=== PATIENT | female | born 1990 | race Caucasian/White ===

== ENCOUNTER 2022-07-17 10:56 | Outpatient (CLI) | payer OTHER, SELFPAY | END 2022-07-17 10:57 | disposition home or self-care (01) | LOC: FRMREF 10:57 | PROVIDERS: PCP Registered Nurse; Visit Provider Registered Nurse | DX: Z34.91 Encounter for supervision of normal pregnancy, unspecified, first trimester (principal) | CPT/HCPCS: 84702 ==

== ENCOUNTER 2022-07-19 11:42 | Outpatient (CLI) | payer OTHER, SELFPAY | END 2022-07-19 11:43 | disposition home or self-care (01) | PROVIDERS: PCP Registered Nurse; Visit Provider Registered Nurse | DX: Z34.90 Encounter for supervision of normal pregnancy, unspecified, unspecified trimester (principal) | CPT/HCPCS: 84702 ==

== ENCOUNTER 2022-07-25 13:50 | Outpatient (CLI) | payer OTHER, SELFPAY ==
--- NOTE | 2022-07-25 14:00 | CRLHL7_ITS ---
For Patients: As a result of the Century Cures Act, medical imaging exams and procedure reports are released immediately into your electronic medical record. You may view this report before your referring provider. If you have questions, please contact your health care provider. INDICATION: First trimester scan, establish dates. COMPARISON: None. TECHNIQUE: Real-time jaime-scale imaging of the pelvis was performed. FINDINGS: Sonographic imaging demonstrates a single living intrauterine gestation. The embryo demonstrates a regular cardiac rate measuring 150 beats per minute. The embryo`s crown-rump length measurement of 1.2 cm corresponds to a gestational age of 7 weeks 3 days with a sonographic due date of 03/10/2023. There is a normal-appearing yolk sac. There are no gross abnormalities noted within the embryo at this early state of development. The gestational sac has a normal appearance. There is no evidence of a perigestational hemorrhage. The amount of fluid within the sac appears appropriate for gestational age. The cervix is closed. The myometrium appears normal. The ovaries are of normal size. Hemorrhagic right ovarian cyst measuring 2.3 cm. Corpus luteal cyst left ovary measuring 2.3 cm. There are no suspicious fluid collections noted in the cul-de-sac. IMPRESSION: Single living intrauterine with sonographic gestational age 7 weeks 3 days and sonographic due date 03/10/2023. Dictated by Jj Monge MD @ 07/27/2022 12:26:17 PM (Electronically Signed)
== END 2022-07-25 13:51 | disposition home or self-care (01) ==
LOC: US 13:52
PROVIDERS: PCP Registered Nurse; Visit Provider Registered Nurse
DX: Z34.91 Encounter for supervision of normal pregnancy, unspecified, first trimester (principal); Z3A.01 Less than 8 weeks gestation of pregnancy
CPT/HCPCS: 76817

== ENCOUNTER 2022-07-25 15:20 | Outpatient (CLI) | payer OTHER, SELFPAY ==
[2022-07-25 22:08] LABS: Chlamydia DNA Amplified* NOT DETECTED (No Detected); GC DNA Amplified* NOT DETECTED (No Detected)
== END 2022-07-25 15:21 | disposition home or self-care (01) ==
PROVIDERS: PCP Registered Nurse; Visit Provider Registered Nurse
DX: Z34.91 Encounter for supervision of normal pregnancy, unspecified, first trimester (principal); Z3A.01 Less than 8 weeks gestation of pregnancy
CPT/HCPCS: 0353U; 86592; 86703; 86762; 86787; 86803; 86850; 86900; 86901; 87086; 87340; 87491; 87591

== ENCOUNTER 2022-11-21 10:34 | Outpatient (CLI) | payer OTHER, SELFPAY | END 2022-11-21 10:35 | disposition home or self-care (01) | PROVIDERS: Visit Provider Obstetrics & Gynecology | DX: O10.912 Unspecified pre-existing hypertension complicating pregnancy, second trimester (principal); Z3A.24 24 weeks gestation of pregnancy | CPT/HCPCS: 82565; 82570; 84156; 84450; 84460; 84520 ==

== ENCOUNTER 2022-12-04 08:59 | Outpatient (CLI) | payer OTHER, SELFPAY ==
--- NOTE | 2022-12-04 09:15 | CRLHL7_ITS ---
For Patients: As a result of the Century Cures Act, medical imaging exams and procedure reports are released immediately into your electronic medical record. You may view this report before your referring provider. If you have questions, please contact your health care provider. OB ULTRASOUND 12/04/2022 INDICATION: Follow-up growth due to high BMI. FINDINGS: Cervix: Not visualized. Positioning: Jose Miguel Breech. Amniotic Fluid: 4.9 cm, SDP Placenta: Posterior, TA. Heart Rate: 139 bpm. Biometry: BPD: 6.6 cm. 26w, 5d, 54 percent. HC: 25.0 cm. 27w, 1d, 55 percent. AC: 22.0 cm. 26w, 3d, 46 percent. FL: 4.7 cm. 25w, 4d, 17 percent. FL/AC ratio: 21 percent. HC/AC ratio: 1.1. EFW: 907 g. Weight: 2 lbs, 10 oz. age by this US: 26w, 3d. ADDIS by this US: 03/09/2023. Percentile by ADDIS: 35%. IMPRESSION: 1. Single live intrauterine gestation. Composite gestational age 26 weeks 3 days. ADDIS of 03/09/2023. 2. Estimated weight is 907 grams which lies at the 35th percentile. Mago Vick M.D. Diagnostic/Breast Radiologist [email or web address] JOSE ALBERTO/emilee / DW/Dictated by: Mago Vick MD @ 12/06/2022 10:27:00 AM (Electronically Signed)
== END 2022-12-04 09:00 | disposition home or self-care (01) ==
LOC: US 08:59
PROVIDERS: Visit Provider Obstetrics & Gynecology
DX: Z34.92 Encounter for supervision of normal pregnancy, unspecified, second trimester (principal); Z3A.26 26 weeks gestation of pregnancy
CPT/HCPCS: 76816

== ENCOUNTER 2022-12-18 14:29 | Outpatient (CLI) | payer OTHER, SELFPAY | END 2022-12-18 14:30 | disposition home or self-care (01) | LOC: NFLDREF 12-22 05:48 | PROVIDERS: Visit Provider Obstetrics & Gynecology | DX: Z34.93 Encounter for supervision of normal pregnancy, unspecified, third trimester (principal); Z3A.28 28 weeks gestation of pregnancy | CPT/HCPCS: 86592 ==

== ENCOUNTER 2022-12-30 15:25 | Outpatient (CLI) | payer OTHER, SELFPAY ==
[2022-12-30 15:33] VITALS: PULSE 85; O2SAT 99
[2022-12-30 16:03] VITALS: RESP 18; TEMP 37.1
[2022-12-30 16:04] VITALS: BP 114/73; PULSE 80
--- NOTE | 2022-12-30 17:35 | PC.OBNST ---
NST Note NST Note Start: 12/30/22 15:57 Freq: ONCE Status: Active Protocol: Document 12/30/22 17:34 WK (Rec: 12/30/22 17:35 WK [id number]) NST Note 2 Para (# of births) 0 EDC 03/10/23 Gestational Age In Weeks & Days 30 Weeks & 0 Days High Risk Factors High Blood Pressure - Preexisting Patient Presented with Complaint(s) of Decreased movement Reactive Yes Appropriate for Gestational Age Yes RN Omayra RNC Date 12/30/22 Reactive Yes Appropriate for Gestational Age Yes NOY Reyes RNC Date 12/30/22 OB NST charge Yes Complete NST Note via Write Note Yes The provider's electronic signature indicates the NST is reactive/appropriate for gestational age. *Note to provider: If an addendum is required, open the patient's chart and click on the note under the Nurse/Allied Health tab.
== END 2022-12-30 16:50 | disposition home or self-care (01) ==
LOC: OB OUT 15:26 → OB 15:27
PROVIDERS: Visit Provider Obstetrics & Gynecology
DX: O10.913 Unspecified pre-existing hypertension complicating pregnancy, third trimester (principal); Z3A.30 30 weeks gestation of pregnancy
CPT/HCPCS: 59025; 99213

== ENCOUNTER 2022-12-31 15:34 | Outpatient (CLI) | payer OTHER, SELFPAY ==
--- NOTE | 2022-12-31 16:00 | CRLHL7_ITS ---
For Patients: As a result of the Century Cures Act, medical imaging exams and procedure reports are released immediately into your electronic medical record. You may view this report before your referring provider. If you have questions, please contact your health care provider. INDICATION: Pre-existing hypertension. Obesity. TECHNIQUE: Ultrasound OB pelvis transabdominal. Real-time jaime-scale imaging of the fetus was performed without stress testing. COMPARISON: None. FINDINGS: Biometric measurements: Biparietal diameter: 11th percentile. Head circumference: 10th percentile. Abdominal circumference: 4th percentile. Femur length: 11th percentile. Estimated weight: 1268 grams, 5th percentile. Estimated ultrasound age by today`s measurements is 29 weeks 0 days with an estimated date of delivery March 18, 2023. heart rate: 133 BPM. Presentation: Breech. Placenta: Posterior. Umbilical artery: Normal blood flow with a systolic to diastolic ratio of 3.3. Amniotic fluid volume single deepest pocket 3 cm 2/2. motion 2/2. tone 2/2. breathing movements 2/2. IMPRESSION: Single viable intrauterine with a biophysical profile 11/18. Fetus is measuring at the 5th percentile by estimated weight. No focal abnormality evident. Dictated by Luis Alberto Membreno MD @ 12/31/2022 6:09:34 PM (Electronically Signed)
== END 2022-12-31 15:35 | disposition home or self-care (01) ==
LOC: US 15:34
PROVIDERS: Visit Provider Obstetrics & Gynecology
DX: O10.913 Unspecified pre-existing hypertension complicating pregnancy, third trimester (principal); Z3A.29 29 weeks gestation of pregnancy
CPT/HCPCS: 76816; 76819; 76820

== ENCOUNTER 2023-01-05 14:00 | Outpatient (CLI) | payer OTHER, SELFPAY ==
--- NOTE | 2023-01-05 14:00 | CRLHL7_ITS ---
For Patients: As a result of the Century Cures Act, medical imaging exams and procedure reports are released immediately into your electronic medical record. You may view this report before your referring provider. If you have questions, please contact your health care provider. INDICATION: IUGR, HYPERTENSION COMPARISON: 12/31/2022 TECHNIQUE: Real time jaime scale imaging of the fetus was performed as well as color Doppler and spectral Doppler analysis of the umbilical artery. Without non-stress testing. FINDINGS: Sonographic imaging demonstrates a single living intrauterine gestation. Fetus demonstrates a regular cardiac rate of 154 beats per minute. Fetus has a ernesto breech position. The umbilical artery demonstrates adequate diastolic blood flow. The S/D ratio measures 4.0. The amniotic fluid volume appears normal and there is a single deepest pocket measurement of 4.2 cm. The fetus was active and demonstrated normal breathing movements. There was normal flexion and extension of the trunk and extremities. IMPRESSION: Normal biophysical profile score of 8 out of 8. Umbilical artery end-diastolic velocity lower limits of normal resulting in S/D ratio at the edge of normal. Continued follow-up recommended. Dictated by Jj Monge MD @ 01/05/2023 3:30:17 PM (Electronically Signed)
== END 2023-01-05 14:01 | disposition home or self-care (01) ==
LOC: US 14:01
PROVIDERS: Visit Provider Obstetrics & Gynecology
DX: O36.5990 Maternal care for other known or suspected poor fetal growth, unspecified trimester, not applicable or unspecified (principal); O13.9 Gestational [pregnancy-induced] hypertension without significant proteinuria, unspecified trimester
CPT/HCPCS: 76819; 76820

== ENCOUNTER 2023-01-09 15:51 | Outpatient (CLI) | payer OTHER, SELFPAY ==
--- NOTE | 2023-01-09 16:00 | CRLHL7_ITS ---
For Patients: As a result of the Century Cures Act, medical imaging exams and procedure reports are released immediately into your electronic medical record. You may view this report before your referring provider. If you have questions, please contact your health care provider. INDICATION: Obesity, IUGR. TECHNIQUE: Ultrasound OB pelvis transabdominal. Real-time jaime-scale imaging of the fetus was performed without stress testing. COMPARISON: 01/05/2023. FINDINGS: Intrauterine gestation: Present. heart rate: 126 BPM. Presentation: Breech. Placenta: Posterior fundal. Amniotic fluid volume single deepest pocket 2.2 cm, amniotic fluid index 6.7 2/2. motion 2/2. tone 2/2. breathing movements 2/2. IMPRESSION: Single viable intrauterine with a biophysical profile 8/8. The single deepest pocket is greater than 2 cm, however the amniotic fluid index is low, 6.7. Dictated by Stephanie Duval MD @ 01/09/2023 5:18:35 PM (Electronically Signed)
== END 2023-01-09 15:52 | disposition home or self-care (01) ==
LOC: US 15:52
PROVIDERS: Visit Provider Obstetrics & Gynecology
DX: O99.210 Obesity complicating pregnancy, unspecified trimester (principal); O36.5990 Maternal care for other known or suspected poor fetal growth, unspecified trimester, not applicable or unspecified; Z3A.00 Weeks of gestation of pregnancy not specified
CPT/HCPCS: 76819

== ENCOUNTER 2023-01-12 13:53 | Outpatient (CLI) | payer OTHER, SELFPAY ==
--- NOTE | 2023-01-12 14:00 | CRLHL7_ITS ---
For Patients: As a result of the Century Cures Act, medical imaging exams and procedure reports are released immediately into your electronic medical record. You may view this report before your referring provider. If you have questions, please contact your health care provider. INDICATION: d/t IUGR, high BMI, low GERA COMPARISON: 01/09/2023 TECHNIQUE: Real time jaime scale imaging of the fetus was performed. Without non-stress testing. FINDINGS: Sonographic imaging demonstrates a single living intrauterine gestation. Fetus demonstrates a regular cardiac rate of 141 beats per minute. Fetus has a ernesto breech position. The amniotic fluid volume appears decreased and there is a single deepest pocket measurement of 2.3 cm. GERA 7.5 cm. The fetus was active and demonstrated normal breathing movements. There was normal flexion and extension of the trunk and extremities. IMPRESSION: Normal biophysical profile score of 8 out of 8. Oligohydramnios with GERA 7.5 cm. Dictated by Jj Monge MD @ 01/13/2023 10:33:39 AM (Electronically Signed)
== END 2023-01-12 13:54 | disposition home or self-care (01) ==
LOC: US 13:54
PROVIDERS: Visit Provider Obstetrics & Gynecology
DX: O36.5990 Maternal care for other known or suspected poor fetal growth, unspecified trimester, not applicable or unspecified (principal)
CPT/HCPCS: 76819; 82565; 84450; 84460; 84520

== ENCOUNTER 2023-01-12 15:18 | Outpatient (CLI) | payer OTHER, SELFPAY | END 2023-01-12 15:19 | disposition home or self-care (01) | PROVIDERS: Visit Provider Obstetrics & Gynecology | DX: O36.5990 Maternal care for other known or suspected poor fetal growth, unspecified trimester, not applicable or unspecified (principal); O41.00X0 Oligohydramnios, unspecified trimester, not applicable or unspecified; Z3A.00 Weeks of gestation of pregnancy not specified | CPT/HCPCS: 82565; 82570; 84156; 84450; 84460; 84520 ==

== ENCOUNTER 2023-05-26 10:03 | Outpatient (CLI) | payer OTHER, SELFPAY | END 2023-05-26 10:04 | disposition home or self-care (01) | PROVIDERS: PCP Obstetrics & Gynecology; Visit Provider Obstetrics & Gynecology | DX: R10.2 Pelvic and perineal pain (principal) | CPT/HCPCS: 87086 ==